=== PATIENT | female | born 1995 | race Caucasian/White ===

== ENCOUNTER 2025-03-17 19:06 | Emergency (ER) | payer MEDICAID, OTHER ==
[~2025-03-17] VITALS: Ht 170.2 cm; Wt 74.8 kg
[2025-03-17] MEDS ORDERED: KETOROLAC TROMETHAMINE 15 MG/ML VIAL ONE (20:30)
[2025-03-17] MEDS: KETOROLAC TROMETHAMINE 15 MG/ML VIAL IM ONE (20:43)
[2025-03-17 20:58] VITALS: BP 116/82; TEMP 98.7; O2SAT 98
== END 2025-03-17 21:02 | disposition home or self-care (01) ==
LOC: ER 19:20
DX: G56.21 Lesion of ulnar nerve, right upper limb (principal)
CPT/HCPCS: 29125; 96372; 99283; J1885